=== PATIENT | male | born 1960 | race Caucasian/White ===

== ENCOUNTER → 2018-11-08 | Outpatient (CLI) | payer OTHER | END | disposition home or self-care (01) | LOC: SPEC 13:11 | PROVIDERS: ATTEND Internal Medicine Nephrology | DX: N18.6 End stage renal disease (principal) | CPT/HCPCS: 36415; 87340; 87517 ==

== ENCOUNTER 2020-10-01 03:17 | Emergency (ER) | payer MEDICARE, OTHER ==
[~2020-10-01] VITALS: Ht 185.4 cm; Wt 129.5 kg
--- NOTE | 2020-10-01 03:50 | RAD ---
XR CHEST 1V 10/01/2020 3:33 AM INDICATION: Fall COMPARISON: None available TECHNIQUE: Portable frontal view of the chest is provided. FINDINGS: The cardiomediastinal silhouette is within normal limits. Lungs are clear. There are no significant pleural effusions. There is no pulmonary vascular congestion. No pneumothora x. No suspicious osseous abnormality. IMPRESSION: There is no acute cardiopulmonary process. Electronically signed by: Valencia Sahni MD (10/01/2020 3:48 AM) [facility] [place]
--- NOTE | 2020-10-01 03:51 | RAD ---
XR EXAM OF ANKLE_LEFT 2V 10/01/2020 3:33 AM INDICATION: Fall COMPARISON: None available. TECHNIQUE: Views left ankle are provided. FINDINGS/ IMPRESSION: There is no acute fracture or dislocation. Joint spaces are maintained. Bone mineralization is within normal limits. Regional soft tissues are within normal limits. There is no soft tissue gas or osseou s erosion. No radiopaque foreign body. Vascular calcifications are present. Posterior calcaneal enthe sophyte present. Electronically signed by: Valencia Sahni MD (10/01/2020 3:48 AM) LILY
--- NOTE | 2020-10-01 03:51 | RAD ---
XR KNEE _3 VIEWS_LT 10/01/2020 3:33 AM INDICATION: Fall COMPARISON: None available. TECHNIQUE: 3 views of the left knee are provided. FINDINGS/ IMPRESSION: There is no significant knee joint effusion although evaluation is limited by patient positioning. Th ere is no acute fracture or dislocation. Joint spaces are maintained. Bone mineralization is within n ormal limits. Regional soft tissues are within normal limits. There is no soft tissue gas or osseous erosion. No radiopaque foreign body. Vascular calcifications are present. Electronically signed by: Valencia Sahni MD (10/01/2020 3:49 AM) PRABHAKAR
[2020-10-01 04:16] LABS: BASO # 0.1 x10^3/uL (0.0-0.2); BASO % 1 % (0-3); EOS # 0.2 x10^3/uL (0.0-0.7); EOS % 3 % (0-3); HEMATOCRIT 29.1 % (39.0-53.0); HEMOGLOBIN 10.1 g/dL (13.0-17.5); LYMPH # 1.4 x10^3/uL (1.0-4.8); LYMPH % 24 % (24-48); MEAN CORPUSCULAR HEMOGLOBIN 31 pg (25-35); MEAN CORPUSCULAR HGB CONC 35 g/dL (31-37); MEAN CORPUSCULAR VOLUME 90 fL (79-100); MONO # 0.4 x10^3/uL (0.0-1.1); MONO % 7 % (0-9); NEUT # 3.8 x10^3/uL (1.8-7.7); NEUT % 65 % (31-73); PLATELET COUNT 107 x10^3/uL (140-400); RED BLOOD COUNT 3.22 x10^6/uL (4.30-5.70); RED CELL DISTRIBUTION WIDTH 13.9 % (11.5-14.5); WHITE BLOOD COUNT 5.9 x10^3/uL (4.0-11.0)
--- NOTE | 2020-10-01 04:17 | PHYS DOC ---
General Adult EDM: Chief Complaint: MECHANICAL FALL HPI: HPI: 60-year-old male past medical history significant for insulin-dependent diabetes, hypertension and ESRD (MWF, last HD W 09/25) presents to the ED brought in by EMS after patient was wearing nonstick shoes and slipped on linoleum floor in his bathroom, landing on his left knee, complains of left lateral knee pain and left ankle pain. Is able to bear weight. Patient states he missed dialysis yesterday because he had a nephrology appointment and missed dialysis on Wednesday because of nasal congestion and coughing from postnasal drip (no associated fever). Reports multiple negative Covid test in the past year. Patient states he makes some urine, voided before coming in today. Glucose in the 400s on arrival. Patient states he usually maintains in the 200s. Denies any associated fever, dizziness, lightheadedness, neurologic deficits, chest pain, dyspnea, abscess, back pain or syncope. Is not any blood thinners. Denies any alcohol or drug use. Did not hit his head or lose consciousness. Reports pat chris is up-to-date. Review of Systems: Review of Systems: Constitutional: Denies fever or chills. [] Eyes: Denies change in visual acuity. [] HENT: Denies nasal congestion or sore throat. [] Respiratory: Denies cough or shortness of breath. [] Cardiovascular: Denies chest pain or edema. [] GI: Denies abdominal pain, nausea, vomiting, bloody stools or diarrhea. [] : Denies dysuria or hematuria Musculoskeletal: Denies back pain or joint deformity Integument: Denies rash or diaphoresis Neurologic: Denies headache, neck pain, focal weakness or sensory changes. [] Endocrine: Denies polyuria or polydipsia. [] Lymphatic: Denies swollen glands. [] Psychiatric: Denies depression or anxiety. [] Heart Score: Risk Factors: Risk Factors: DM, Current or recent (<one month) smoker, HTN, HLP, family history of CAD, obesity. Risk Scores: Score 0 - 3: 2.5% MACE over next 6 weeks - Discharge Home Score 4 - 6: 20.3% MACE over next 6 weeks - Admit for Clinical Observation Score 7 - 10: 72.7% MACE over next 6 weeks - Early Invasive Strategies Allergies: Allergies: Allergies Coded Allergies Type Severity Reaction Last Updated Verified atorvastatin Adverse Reaction Unknown Diarrhea 10/01/20 Yes Physical Exam: PE: Constitutional: Well developed, well nourished, no acute distress, non-toxic appearance. HENT: Normocephalic, atraumatic, no signs of head trauma Eyes: PERRLA, EOMI, conjunctiva normal, no discharge. Neck: Normal range of motion, supple, Cardiovascular: S1/2 present, regular rhythm Lungs & Thorax: Speaking in full sentences, bilateral equal chest rise, no tachypnea or increased work of breathing Abdomen: soft, no tenderness, obese Skin: Warm, dry, no erythema, no rash. [] Back: No midline spinal tenderness or step-offs, no CVA tenderness. [] Extremities: No reproducible tenderness, patient bears weight with no grimace, right distal foot amputation, left foot with superficial abrasion over dorsum of foot, intact left lower extremity pulses, no deformity or reproducible tenderness of left knee or left ankle, no left hip pain Neurologic: Alert and oriented X 3, normal motor function, normal sensory function, no focal deficits noted. [] Psychologic: Affect normal, judgement normal, mood normal. [] Nexus C-spine criteria are negative: There is no post midline tenderness, the patient is not intoxicated, there is a normal level of alertness, there are no focal neurologic deficits and there are no distracting injuries. EKG: EKG: Sinus rhythm at 76 bpm, left axis deviation, QTC 445, T wave inversion lead III, no ST elevations or ST depressions, no active chest pain Radiology/Procedures: Radiology/Procedures: IMAGING REPORT Signed PATIENT: TREVON RANGEL ACCOUNT: [id number] : 1960 LOCATION: ER AGE: 60 SEX: M EXAM STATUS: REG ER ORD. PHYSICIAN: LITTLE FRANCO DO REASON: fall PROCEDURE: CHEST AP ONLY XR CHEST 1V 10/01/2020 3:33 AM INDICATION: Fall COMPARISON: None available TECHNIQUE: Portable frontal view of the chest is provided. FINDINGS: The cardiomediastinal silhouette is within normal limits. Lungs are clear. There are no significant pleural effusions. There is no pulmonary vascular congestion. No pneumothorax. No suspicious osseous abnormality. IMPRESSION: There is no acute cardiopulmonary process. Electronically signed by: Rosa Fisher MD (10/01/2020 3:48 AM) [facility] DICTATED and SIGNED BY: ROSA FISHER MD DATE: 10/01/20 [id number] IMAGING REPORT Signed PATIENT: TREVON RANGEL ACCOUNT: [id number] : 1960 LOCATION: ER AGE: 60 SEX: M EXAM STATUS: REG ER ORD. PHYSICIAN: LITTLE FRANCO DO REASON: fall PROCEDURE: KNEE LEFT 3V XR KNEE _3 VIEWS_LT 10/01/2020 3:33 AM INDICATION: Fall COMPARISON: None available. TECHNIQUE: 3 views of the left knee are provided. FINDINGS/ IMPRESSION: There is no significant knee joint effusion although evaluation is limited by patient positioning. There is no acute fracture or dislocation. Joint spaces are maintained. Bone mineralization is within normal limits. Regional soft tissues are within normal limits. There is no soft tissue gas or osseous erosion. No radiopaque foreign body. Vascular calcifications are present. Electronically signed by: Rosa Fisher MD (10/01/2020 3:49 AM) [facility] DICTATED and SIGNED BY: ROSA FISHER MD DATE: 10/01/20 [id number] IMAGING REPORT Signed PATIENT: TREVON RANGEL ACCOUNT: [id number] : 1960 LOCATION: ER AGE: 60 SEX: M EXAM STATUS: REG ER ORD. PHYSICIAN: LITTLE FRANCO DO REASON: fall PROCEDURE: ANKLE LEFT 2V XR EXAM OF ANKLE_LEFT 2V 10/01/2020 3:33 AM INDICATION: Fall COMPARISON: None available. TECHNIQUE: Views left ankle are provided. FINDINGS/ IMPRESSION: There is no acute fracture or dislocation. Joint spaces are maintained. Bone mineralization is within normal limits. Regional soft tissues are within normal limits. There is no soft tissue gas or osseous erosion. No radiopaque foreign body. Vascular calcifications are present. Posterior calcaneal enthesophyte present. Electronically signed by: Rosa Fisher MD (10/01/2020 3:48 AM) [facility] DICTATED and SIGNED BY: ROSA FISHER MD DATE: 10/01/20 [id number] Course & Med Decision Making: Course & Med Decision Making Pertinent Labs and Imaging studies reviewed. (See chart for details) Concern for accidental fall with soft tissue injury to left knee left ankle -no fracture on imaging which is consistent with physical exam, is able to bear weight. Labs with uncontrolled, nonketotic diabetes potassium 5.4. Patient encouraged to have dialysis today -wound of electrolyte abnormalities and risk of cardiac arrhythmia and . Will discharge home with strict ED return precautions were given for syncope, chest pain or dyspnea. Encouraged urgent outpatient follow-up with PMD. Life-threatening processes were considered but are low suspicion at this time, given history, physical exam and ED workup. Pt was educated on all prescription medications and adverse effects. All patient's questions were answered and pt was stable at time of discharge. Life/limb-threatening differential includes but is not limited to, end organ damage/sepsis, trauma/abuse/neglect, neurologic deficit, alcohol/drug ingestion, toxidrome, suicidal/homicidal ideations plans or attempts, psychosis or mental illness resulting in self neglect and inability to care for self. I spoken with the patient and her caregivers. I explained the patient's condition, diagnoses and treatment plan based on the information available to me at this time. I have answered the patient and her caregiver's questions and addressed any concerns. The patient and her caregivers have a good understanding of patient's diagnosis, condition and treatment plan as can be expected at this point. Vital signs have been stable. Patient's condition is stable and appropriate for discharge from the emergency department. Patient will pursue further outpatient evaluation with primary care physician or other designated or consulting physician as outlined in the discharge instructions. The patient and/or caregivers are agreeable to this plan of care and follow-up instructions have been explained in detail. The patient and/or caregivers have received these instructions in written form and have expressed an understanding of the discharge instructions. The patient and/or caregivers are aware that any significant change of condition or worsening of symptoms should prompt immediate return to this or the closest emergency department or call to 911. Rufino Disclaimer: Rufino Disclaimer: This electronic medical record was generated, in whole or in part, using a voice recognition dictation system. Departure Departure Impression: Primary Impression: Accidental fall Additional Impressions: Left ankle pain Left knee pain Uncontrolled diabetes mellitus Disposition: 01 DC HOME SELF CARE/HOMELESS Condition: STABLE Referrals: NO PCP (PCP) FOLLOW UP WITH FAMILY MEDICINE: Family Medicine Address: [address] [place] [address] Patient Instructions: Diabetes Meal Planning Guide, Fall Prevention and Home Safety, Hyperglycemia Additional Instructions: EMERGENCY DEPARTMENT GENERAL DISCHARGE INSTRUCTIONS Thank you for coming to [facility] Emergency Department (ED) today and trusting us with you care. We trust that you had a positive experience in our Emergency Department. If you wish to speak to the department management, you may call the Director at [phone]. YOUR FOLLOW UP INSTRUCTIONS ARE FOLLOWS: 1. Do you have a private Doctor? If you do not have a private doctor, please ask for a resource list of physicians or clinics that may be able to assist you with follow up care. 2. The Emergency Physicain has interpreted your x-rays. The X-Ray specialist will also review them. If there is a change in the findings, you will be notified in 48 hours when at all possible. 3. A lab test or culture has been done, your results will be reviewed and you will be notified if you need a change in treatment. ADDITIONAL INSTRUCTIONS AND INFORMATION: 1. Your care today has been supervised by a physician who is specially trained in emergency care. Many problems require more than one evaluation for a complete diagnosis and treatment. We recommend that you schedule your follow up appointment as recommended to ensure complete treatment of you illness or injury. If you are unable to obtain follow up care and continue to have a problem, or if your condition worsens, we recommend that you return to the ED. 2. We are not able to safely determine your condition over the phone nor are we able to give sound medical advice over the phone. For these safety reasons, if you call for medical advice we will ask you to come to the ED for further evaluation. 3. If you have any questions regarding these discharge instructions please call the ED at [phone]. SAFETY INFORMATION: In the interest of safety, wellness, and injury prevention; we encourage you to wear your sealbelt, if you smoke; quite smoking, and we encourage family to use a protective helmet for bicycling and other sporting events that present an increased risk for head injury. IF YOUR SYMPTOMS WORSEN OR NEW SYMPTOMS DEVELOP, OR YOU HAVE CONCERNS ABOUT YOUR CONDITION; OR IF YOUR CONDITION WORSENS WHILE YOU ARE WAITING FOR YOUR FOLLOW UP APPOINTMENT; EITHER CONTACT YOUR PRIMARY CARE DOCTOR, THE PHYSICIAN WHOSE NAME AND NUMBER YOU WERE GIVEN, OR RETURN TO THE ED IMMEDIATELY. [facility] DO Oct 01, 2020 04:17
--- NOTE | 2020-10-01 04:45 | EKG ---
[facility] [address] [place] [address] Test Date: 2020-10-01 Test Time: 03:48:33 Pat Name: TREVON RANGEL Department: Room: Gender: M Soil Tester: : 1960 Requested By: LITTLE FRANCO Order Number: [id number] Reading MD: Richard Kendall Measurements Intervals [place] Rate: 76 P: 0 [place]: 158 QRS: -10 QRSD: 102 T: 11 QT: 392 QTc: 445 Interpretive Statements SINUS RHYTHM LEFTWARD AXIS QRS(T) CONTOUR ABNORMALITY CONSIDER ANTEROSEPTAL MYOCARDIAL DAMAGE CONSIDER INFERIOR INFARCT POSSIBLY ABNORMAL ECG RI6.01 No previous ECG available for comparison Electronically Signed On 10-01-2020 14:39:48 LUDLOW MACHINE OPERATOR by Richard Kendall
[2020-10-01 04:49] LABS: CALCIUM 9.4 mg/dL (8.5-10.1); CREATININE 10.9 mg/dL (0.7-1.3); GFR 4.9; POTASSIUM 5.6 mmol/L (3.5-5.1)
[2020-10-01 04:56] LABS: ALBUMIN 3.1 g/dL (3.4-5.0); ALBUMIN/GLOBULIN RATIO 0.8 (1.0-1.7); MAGNESIUM 2.9 mg/dL (1.8-2.4); TOTAL BILIRUBIN 0.3 mg/dL (0.2-1.0); TOTAL PROTEIN 6.8 g/dL (6.4-8.2)
[2020-10-01 06:22] VITALS: BP 160/96
== END 2020-10-01 06:30 | disposition home or self-care (01) ==
LOC: ER 03:17
DX: G89.11 Acute pain due to trauma (principal); M25.572 Pain in left ankle and joints of left foot; M25.562 Pain in left knee; N18.6 End stage renal disease; Z88.8 Allergy status to other drugs, medicaments and biological substances; E11.9 Type 2 diabetes mellitus without complications; W18.39XA Other fall on same level, initial encounter; Y93.89 Activity, other specified; Y92.89 Other specified places as the place of occurrence of the external cause; Y99.8 Other external cause status
CPT/HCPCS: 36415; 71045; 73562; 73600; 80053; 82010; 83735; 84484; 85025; 93005; 99285